=== PATIENT | female | born 1995 | race Caucasian/White ===

== ENCOUNTER → 2022-10-12 | Outpatient (REF) | payer OTHER | LOC: M WUC 17:20 | PROVIDERS: ATTEND Student in an Organized Health Care Education/Training Program | DX: R30.0 Dysuria (principal) ==

== ENCOUNTER → 2023-07-15 | Outpatient (REF) | payer OTHER | LOC: M LAB REF 17:17 | PROVIDERS: ATTEND Physician Assistant | DX: N39.0 Urinary tract infection, site not specified (principal) ==

== ENCOUNTER → 2023-08-13 | Outpatient (CLI) | payer OTHER | LOC: M WHC 12:50 → EEVIPCON 13:30 | PROVIDERS: ATTEND Physician Assistant | DX: N92.6 Irregular menstruation, unspecified (principal) ==